=== PATIENT | female | born 1995 | race Two or more races ===

== ENCOUNTER 2023-06-06 08:48 | Emergency (ER) | payer MEDICAID ==
[~2023-06-06] VITALS: Ht 154.9 cm; Wt 65.8 kg
[2023-06-06 08:51] VITALS: BP 111/73
[2023-06-06 10:11] VITALS: PULSE 77; RESP 14; O2SAT 98
[2023-06-06] MEDS ORDERED: AZIT-43 PO (11:45)
[2023-06-06] MEDS ORDERED: FLUT1SPR5 (11:45)
[2023-06-06] MEDS ORDERED: DEXT60TA4 PO (11:45)
== END 2023-06-06 11:51 | disposition home or self-care (01) ==
LOC: ER 08:48
DX: J45.909 Unspecified asthma, uncomplicated (principal); J06.9 Acute upper respiratory infection, unspecified